=== PATIENT | female | born 1995 | race Caucasian/White ===

== ENCOUNTER 2019-04-28 14:30 | Emergency (ER) | payer OTHER ==
[~2019-04-28] VITALS: Ht 157.5 cm; Wt 85.7 kg
[2019-04-28 14:51] VITALS: BP 120/74
--- NOTE | 2019-04-28 15:17 | NUR ---
PT AMBULATED TO BED 8.
--- NOTE | 2019-04-28 15:44 | NUR ---
Dr. Cox is evaluating the patient at bedside.
--- NOTE | 2019-04-28 16:07 | NUR ---
Dr. Cox is re-evaluating the patient at bedside.
--- NOTE | 2019-04-28 16:07 | NUR ---
23 YEAR OLD PATIENT COMPLAINS OF RIGHT KNEE PAIN AFTER FALL. SWELLING NOTED ON RIGHT KNEE. PATIENT STATES SHE HAS 9/10 PAIN ON RIGHT LEG. +ROM. CMS INTACT. PATIENT ALERT AND ORIENTED, BED IN LOWEST POSITION, LOCKED, BED RAIL UPX1
--- NOTE | 2019-04-28 16:07 | NUR ---
EMT IS AT BEDSIDE
--- NOTE | 2019-04-28 16:09 | NUR ---
PLACED ALBERT WRAPS ON PT'S RIGHT KNEE
[2019-04-28 16:15] VITALS: BP 120/74
--- NOTE | 2019-04-28 16:18 | NUR ---
Patient discharged with v/s stable. Written and verbal after care instructions given and explained ABOUT KNEE PAIN. Patient alert, oriented and verbalized understanding of instructions. Wheel Chair Assisted with to car. All questions addressed prior to discharge. ID band removed. Patient advised to follow up with PMD. Rx of given OF NORCO, ZOFRAN, AND MOTRIN. Patient educated on indication of medication including possible reaction and side effects. Opportunity to ask questions provided and answered. EXCUSE GIVEN FOR WORK.
== END 2019-04-28 16:18 | disposition home or self-care (01) ==
LOC: MED 14:30
DX: S80.01XA Contusion of right knee, initial encounter (principal); M54.5 Low back pain; G89.29 Other chronic pain; W18.39XA Other fall on same level, initial encounter; Y92.89 Other specified places as the place of occurrence of the external cause; Y93.89 Activity, other specified; Y99.0 Civilian activity done for income or pay
CPT/HCPCS: 29505; 73562; 99283